=== PATIENT | female | born 2000 | race Caucasian/White ===

== ENCOUNTER 2021-10-27 15:37 | Emergency (ER) | payer MEDICAID ==
[2021-10-27 16:37] VITALS: O2SAT 100
[2021-10-27 16:39] VITALS: BP 125/76; PULSE 100
--- NOTE | 2021-10-27 17:58 | ERPHSYRPT ---
- History of Present Illness Time Seen by Provider: 10/27/21 17:53 Source: patient Exam Limitations: no limitations Patient Subjective Stated Complaint: Patient states " I woke up this am feeling like I was going to throw up and became dizzy." I also woke up with scratchy sore throat." Triage Nursing Assessment: Patient ambulated to room with steady gait and no difficulties. Patient denies any SOB. Respiratory regular and easy and non- labored. No use of accessory muscles or retractions noted. Patient stated she had tried her brothers vape last night and then woke up this am with a sore throat and nausea. Patient concerned she maybe having an allergic reaction to something in the vap. Patient denies having any emesis. Patient denies having any loose stools. Patient denies any fevers or chills at home. Patient denies any chest pain. + BS times 4 quads. ABD soft, round, non-distended. Upon visualization of throat, no swelling noted. Mild redness noted. Physician History: pt vaped a day or so ago and noted sore throat and aching. takes liquids OK. some nodes . abd nontender without mass. discussed testing and pt wishes to have Tx for strep and will f/u PMD after discussion of risk and benefit. she defers mono testing at this time. and will f/u PCP. no rash or swelling to indicate allergic rxn at this time. not short of breath. Timing/Duration: gradual onset, yesterday Associated Symptoms: sore throat, No difficulty swallowing, No voice change Hx Tetanus, Diphtheria Vaccination/Date Given: Yes Hx Influenza Vaccination/Date Given: No Hx Pneumococcal Vaccination/Date Given: No Immunizations Up to Date: Yes Travel Risk - International Travel Have you traveled outside of the country in past 3 weeks: No - Coronavirus Screening Are you exhibiting any of the following symptoms?: No Symptoms: Shortness of Breath - Vaccine Status Have you recieved a Covid-19 vaccination: No - Review of Systems Constitutional: No Fever, No Chills Eyes: No Symptoms Ears, Nose, & Throat: No Symptoms, Throat Pain, No Throat Swelling, No Hoarse, No Painful Swallowing, No Stridor Respiratory: No Cough, No Dyspnea Cardiac: No Chest Pain, No Edema, No Syncope Abdominal/Gastrointestinal: Nausea, No Abdominal Pain, No Vomiting, No Diarrhea Genitourinary Symptoms: No Dysuria Musculoskeletal: No Back Pain, No Neck Pain Skin: No Rash Neurological: No Dizziness, No Focal Weakness, No Sensory Changes Psychological: No Symptoms Endocrine: No Symptoms All Other Systems: Reviewed and Negative - Past Medical History Pertinent Past Medical History: Yes Neurological History: No Pertinent History ENT History: No Pertinent History Cardiac History: No Pertinent History Respiratory History: No Pertinent History Endocrine Medical History: No Pertinent History Musculoskeletal History: Other GI Medical History: No Pertinent History History: No Pertinent History Psycho-Social History: No Pertinent History Female Reproductive Disorders: No Pertinent History Other Medical History: ORTHO PROBLEMS NOTED IN PATIENT C/O. NO SURGERIES. - Past Surgical History Past Surgical History: No Neuro Surgical History: No Pertinent History Cardiac: No Pertinent History Respiratory: No Pertinent History Gastrointestinal: No Pertinent History Genitourinary: No Pertinent History Musculoskeletal: No Pertinent History Female Surgical History: No Pertinent History - Social History Smoking Status: Never smoker Exposure to second hand smoke: Yes Drug Use: marijuana Patient Lives Alone: No - Female History Hx Now: No - Nursing Vital Signs Nursing Vital Signs: Initial Vital Signs Temperature 98.0 F 10/27/21 15:37 Pulse Rate 106 H 10/27/21 15:37 Respiratory Rate 18 10/27/21 15:37 Blood Pressure 135/85 10/27/21 15:37 O2 Sat by Pulse Oximetry 100 10/27/21 15:37 Pain Scale Pain Intensity 0 - Physical Exam General Appearance: no apparent distress Eye Exam: bilateral eye: normal inspection, PERRL, EOMI Ear Exam: bilateral ear: auricle normal, canal normal, TM normal Throat Exam: No dental tenderness, No excessive drooling, No maxillary swelling, No pharynx swelling, No pharynx tenderness, No trismus Neck Exam: normal inspection, non-tender, supple, full range of motion, trachea midline Cardiovascular/Respiratory Exam: chest non-tender, regular rate/rhythm, heart sounds normal, no respiratory distress Abdominal Exam: non-tender, soft, no organomegaly Neurologic Exam: alert, oriented x 3, cooperative, 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 - Course Nursing assessment & vital signs reviewed: Yes - Progress Counseled pt/family regarding: diagnosis, need for follow-up - Departure Departure Disposition: Home Clinical Impression: Pharyngitis Condition: Good Critical Care Time: No Referrals: SOURAV ESPINO, [facility] [employer] [Primary Care Provider] - Follow up/PCP as directed Instructions: Sore Throat, Adult (DC) Additional Instructions: followup with your Dr. return meantime if not inproving, trouble swallowing, short of breath or other concerns. Prescriptions: Amoxicillin [AMOXIL 250 MG CAPSULE] 250 mg PO TID #30 cap
== END 2021-10-27 18:20 | disposition home or self-care (01) ==
LOC: ED 15:37
DX: J02.9 Acute pharyngitis, unspecified (principal)
CPT/HCPCS: 99283

== ENCOUNTER 2023-01-08 12:56 | Emergency (ER) | payer MEDICAID ==
[2023-01-08 13:17] VITALS: PULSE 105
[2023-01-08] MEDS ORDERED: Sodium Chloride 0.9% 1000 ML 1,000 ML IV STA (13:27)
[2023-01-08] MEDS ORDERED: TORAdol 30 mg Injection IV ONE (13:29)
[2023-01-08] MEDS ORDERED: TORAdol 30 mg Injection ONE (13:36)
[2023-01-08] MEDS ORDERED: Sodium Chloride 0.9% 1000 ML 1,000 ML ONE (13:36)
[2023-01-08 13:38] LABS: Absolute Neutrophil Ct (ANC) 6.42 x10^3/uL (1.4-6.9); BASOPHIL % 0.9 % (0.0-0.4); Basophil (Absolute #) 0.09 x10^3/uL (0-0.4); Eosinophil % 0.9 % (0.00-5.0); Eosinophil (Absolute #) 0.09 x10^3/uL (0-0.5); Hematocrit 43.7 % (35-47); Hemoglobin 14.5 g/dL (12.0-16.0); IMMATURE GRAN # 0.03 x10^3u/L (0.00-0.03); IMMATURE GRAN % 0.3 % (0.00-0.4); Lymphocyte (Absolute #) 2.06 x10^3/uL (1.0-4.6); Lymphocytes % 21.2 % (24.0-44.0); Mean Cell Volume 90.5 fL (78-100); Mean Corpuscular Hgb Concent. 33.2 g/dL (32-36); Mean Platelet Volume 9.8 fL (7.5-11.0); Monocyte (Absolute #) 1.01 x10^3/uL (0.0-1.3); Monocytes % 10.4 % (0.0-12.0); Neutrophil % 66.3 % (36.0-66.0); Platelet Count 269 x10^3/uL (150-450); Red Blood Count 4.83 x10^6/uL (4.1-5.4); Red Cell Distribution Width 12.5 % (11.5-14.0); White Blood Count 9.7 x10^3/uL (4.0-10.5)
[2023-01-08 13:41] LABS: HCG URINE TEST NEGATIVE (NEGATIVE)
[2023-01-08 13:45] LABS: Appearance Clear (Clear); Bacteria None Seen /HPF (None Seen); Bilirubin Negative (Negative); Blood Negative (Negative); Epithelial Cells None Seen /HPF (None Seen); Glucose, Urine Negative (Negative); Hyaline Casts NONE SEEN /LPF (0-2); Ketones Negative (Negative); Leukocyte Esterase Negative (Negative); Nitrite Negative (Negative); Protein,Urine Dip Negative (Negative); RBC 0-2 /HPF (0-5); Urobilinogen 0.2 mg/dL (0.2); WBC 0-2 /HPF (0-5)
[2023-01-08 13:47] LABS: ADD URINE CULTURE? NO (NO)
[2023-01-08 13:59] LABS: ALBUMIN 4.7 g/dL (3.5-5.0); ALKALINE PHOSPHATASE 61 U/L (38-126); ANION GAP 15.5 MEQ/L (5-15); BLOOD UREA NITROGEN 12 mg/dL (7-17); CHLORIDE 104 mmol/L (98-107); Calcium 9.5 mg/dL (8.4-10.2); Carbon Dioxide 25 mmol/L (22-30); Creatinine 1 0.63 mg/dL (0.52-1.04); EST GLOMERULAR FILTRATION RATE > 60.0 ML/MIN; Glucose 101 mg/dL (74-106); Potassium 3.5 mmol/L (3.5-5.1); SGOT/AST 32 U/L (14-36); SGPT/ALT 24 U/L (0-35); SODIUM 141 mmol/L (137-145); Total Protein 8.2 g/dL (6.3-8.2)
--- NOTE | 2023-01-08 14:36 | ERPHSYRPT ---
- History of Present Illness Time Seen by Provider: 01/08/23 14:33 Source: patient Exam Limitations: no limitations Patient Subjective Stated Complaint: Pt c/o of left lateral back pain for the past 3 days Triage Nursing Assessment: Pt was brought to the ER by her mother, hypertensive, rates pain as 8/10, pain with palpatation to the left lateral medial back, pulses normal, cap refil normal, no difficulty breathing, denies injury, doesn't appear to be in any distress Physician History: Patient is a 22-year-old female presents to our ED with complaints of left upper flank pain. Pain started approximately 3 days ago. Pain has been constant. No radiation. patient denies history of the same. No trauma. No fever. Patient admits to urinary frequency not urgency or dysuria. Patient denies a history of the same. Symptoms are moderate in intensity. No specific worsening improving factors. Patient voices no other complaints or concerns at this time. Portions of this note were created with voice recognition technology. There may be grammatical, spelling, punctuation or sound alike errors Timing/Duration: day(s) Severity: moderate Modifying Factors: Improves With: nothing Associated Symptoms: denies symptoms Allergies/Adverse Reactions: No Known Drug Allergies Allergy (Verified 01/08/23 13:17) Home Medications: No Reportable Medications [No Reported Medications] 01/08/23 [History] Hx Tetanus, Diphtheria Vaccination/Date Given: Yes Hx Influenza Vaccination/Date Given: No Hx Pneumococcal Vaccination/Date Given: No Travel Risk - International Travel Have you traveled outside of the country in past 3 weeks: No - Coronavirus Screening Are you exhibiting any of the following symptoms?: No Close contact with a COVID-19 positive Pt in past 14-21 Days: No - Vaccine Status Have you recieved a Covid-19 vaccination: Yes Table Hand: Unknown - Vaccination Dates Dates if Unknown: unk - Review of Systems Constitutional: No Symptoms, No Fever, No Chills Eyes: No Symptoms Ears, Nose, & Throat: No Symptoms Respiratory: No Symptoms, No Cough, No Dyspnea Cardiac: No Symptoms, No Chest Pain, No Edema, No Syncope Abdominal/Gastrointestinal: No Symptoms, No Abdominal Pain, No Nausea, No Vomiting, No Diarrhea Genitourinary Symptoms: No Symptoms, No Dysuria Musculoskeletal: No Symptoms, No Back Pain, No Neck Pain Skin: No Symptoms, No Rash Neurological: No Symptoms, No Dizziness, No Focal Weakness, No Sensory Changes Psychological: No Symptoms Endocrine: No Symptoms Hematologic/Lymphatic: No Symptoms Immunological/Allergic: No Symptoms All Other Systems: Reviewed and Negative - Past Medical History Pertinent Past Medical History: Yes Neurological History: No Pertinent History ENT History: No Pertinent History Cardiac History: No Pertinent History Respiratory History: No Pertinent History Endocrine Medical History: No Pertinent History Musculoskeletal History: Other GI Medical History: No Pertinent History History: No Pertinent History Psycho-Social History: No Pertinent History Female Reproductive Disorders: No Pertinent History Other Medical History: ORTHO PROBLEMS NOTED IN PATIENT C/O. NO SURGERIES. - Past Surgical History Past Surgical History: No Neuro Surgical History: No Pertinent History Cardiac: No Pertinent History Respiratory: No Pertinent History Gastrointestinal: No Pertinent History Genitourinary: No Pertinent History Musculoskeletal: No Pertinent History Female Surgical History: No Pertinent History - Social History Smoking Status: Never smoker Exposure to second hand smoke: Yes Drug Use: marijuana Patient Lives Alone: No - Female History Hx Now: No (implants in arm) - Nursing Vital Signs Nursing Vital Signs: Initial Vital Signs Temperature 98.5 F 01/08/23 13:01 Pulse Rate 105 H 01/08/23 13:01 Blood Pressure 172/83 01/08/23 13:01 O2 Sat by Pulse Oximetry 99 01/08/23 13:01 Pain Scale Pain Intensity [] 8 Pain Intensity 9 - Physical Exam General Appearance: no apparent distress, alert Eye Exam: PERRL/EOMI, eyes nml inspection Ears, Nose, Throat Exam: normal ENT inspection, pharynx normal, moist mucous membranes Neck Exam: normal inspection, non-tender, supple, full range of motion Respiratory Exam: normal breath sounds, lungs clear, airway intact, No respiratory distress Cardiovascular Exam: regular rate/rhythm, normal heart sounds, normal peripheral pulses Gastrointestinal/Abdomen Exam: soft, normal bowel sounds, No tenderness, No mass Back Exam: normal inspection, normal range of motion, other (Tenderness to palpation left upper posterior flank. Overlying soft tissue intact. No signs of trauma.), No CVA tenderness, No vertebral tenderness Extremity Exam: normal inspection, normal range of motion, pelvis stable Neurologic Exam: alert, oriented x 3, cooperative, normal mood/affect, nml cerebellar function, nml station & gait, sensation nml, No motor deficits Skin Exam: normal color, warm, dry, No rash Lymphatic Exam: No adenopathy SpO2 Interpretation: normal SpO2: 99 O2 Delivery: Room Air - Course Nursing assessment & vital signs reviewed: Yes - CT Exams Abdomen/Pelvis CT Interpretation: Tele-radiologist Report (Small right base calcific granuloma, right ovarian cyst during 2.6 cm. Fecal stasis) Ordered Tests: Active Orders 24 hr Category Date Time Status IV Insertion STAT Care 01/08/23 13:27 Active ABDOMEN AND PELVIS W/0 CONTRAS [CT] Stat Exams 01/08/23 14:16 Taken CBC W DIFF Stat Lab 01/08/23 13:35 Completed CMP Stat Lab 01/08/23 13:35 Completed D-DIMER QUANTITATIVE Stat Lab 01/08/23 13:35 Completed HCG QUALITATIVE, URINE Stat Lab 01/08/23 13:35 Completed UA W/RFX UR CULTURE Stat Lab 01/08/23 13:35 Completed Medication Summary Discontinued Medications Generic Name Dose Route Start Last Admin Trade Name Freq PRN Reason Stop Dose Admin Sodium Chloride 1,000 mls @ 999 mls/hr 01/08/23 13:27 01/08/23 14:39 Sodium Chloride 0.9% 1000 Ml IV 01/08/23 14:27 Infused .Q1H1M STA Infusion Sodium Chloride Confirm 01/08/23 13:36 Sodium Chloride 0.9% 1000 Ml Administered 01/08/23 13:37 Dose 1,000 mls @ ud .ROUTE .STK-MED ONE Ketorolac Tromethamine 30 mg 01/08/23 13:29 01/08/23 13:38 Ketorolac Tromethamine 30 Mg/Ml Inj IV 01/08/23 13:30 30 mg STAT ONE Administration Ketorolac Tromethamine Confirm 01/08/23 13:36 Ketorolac Tromethamine 30 Mg/Ml Inj Administered 01/08/23 13:37 Dose 30 mg .ROUTE .STK-MED ONE Lab/Rad Data: Laboratory Result Diagrams 01/08/23 13:35 01/08/23 13:35 Laboratory Results 01/08/23 01/08/23 01/08/23 Range/Units 13:35 13:35 13:35 WBC (4.0-10.5) x10^3/uL RBC (4.1-5.4) x10^6/uL Hgb (12.0-16.0) g/dL Hct (35-47) % MCV (78-100) fL MCH (26-32) pg MCHC (32-36) g/dL RDW (11.5-14.0) % Plt Count (150-450) x10^3/uL MPV (7.5-11.0) fL Gran % (36.0-66.0) % Immature Gran % (Auto) (0.00-0.4) % Nucleat RBC Rel Count (0.00-0.1) % Eos # (Auto) (0-0.5) x10^3/uL Immature Gran # (Auto) (0.00-0.03) x10^3u/L Absolute Lymphs (auto) (1.0-4.6) x10^3/uL Absolute Monos (auto) (0.0-1.3) x10^3/uL Absolute Nucleated RBC (0.00-0.01) x10^3u/L Lymphocytes % (24.0-44.0) % Monocytes % (0.0-12.0) % Eosinophils % (0.00-5.0) % Basophils % (0.0-0.4) % Absolute Granulocytes (1.4-6.9) x10^3/uL Basophils # (0-0.4) x10^3/uL D-Dimer < 0.19 (0.0-0.50) mg/L Sodium 141 (137-145) mmol/L Potassium 3.5 (3.5-5.1) mmol/L Chloride 104 (98-107) mmol/L Carbon Dioxide 25 (22-30) mmol/L Anion Gap 15.5 H (5-15) MEQ/L BUN 12 (7-17) mg/dL Creatinine 0.63 (0.52-1.04) mg/dL Estimated GFR > 60.0 ML/MIN Glucose 101 (74-106) mg/dL Calcium 9.5 (8.4-10.2) mg/dL Total Bilirubin 1.00 (0.2-1.3) mg/dL AST 32 (14-36) U/L ALT 24 (0-35) U/L Alkaline Phosphatase 61 (38-126) U/L Serum Total Protein 8.2 (6.3-8.2) g/dL Albumin 4.7 (3.5-5.0) g/dL Urine Color (Yellow) Urine Appearance (Clear) Urine pH (4.6-8.0) Ur Specific [place] (1.005-1.030) Urine Protein (Negative) Urine Glucose (UA) (Negative) mg/dL Urine Ketones (Negative) Urine Blood (Negative) Urine Nitrite (Negative) Urine Bilirubin (Negative) Urine Urobilinogen (0.2) mg/dL Ur Leukocyte Esterase (Negative) U Hyaline Cast (Auto) (0-2) /LPF Urine Microscopic RBC (0-5) /HPF Urine Microscopic WBC (0-5) /HPF Ur Epithelial Cells (None Seen) /HPF Urine Bacteria (None Seen) /HPF Urine Culture Reflexed (NO) Urine HCG, Qual NEGATIVE (NEGATIVE) 01/08/23 01/08/23 Range/Units 13:35 13:35 WBC 9.7 (4.0-10.5) x10^3/uL RBC 4.83 (4.1-5.4) x10^6/uL Hgb 14.5 (12.0-16.0) g/dL Hct 43.7 (35-47) % MCV 90.5 (78-100) fL MCH 30.0 (26-32) pg MCHC 33.2 (32-36) g/dL RDW 12.5 (11.5-14.0) % Plt Count 269 (150-450) x10^3/uL MPV 9.8 (7.5-11.0) fL Gran % 66.3 H (36.0-66.0) % Immature Gran % (Auto) 0.3 (0.00-0.4) % Nucleat RBC Rel Count 0.0 (0.00-0.1) % Eos # (Auto) 0.09 (0-0.5) x10^3/uL Immature Gran # (Auto) 0.03 (0.00-0.03) x10^3u/L Absolute Lymphs (auto) 2.06 (1.0-4.6) x10^3/uL Absolute Monos (auto) 1.01 (0.0-1.3) x10^3/uL Absolute Nucleated RBC 0.00 (0.00-0.01) x10^3u/L Lymphocytes % 21.2 L (24.0-44.0) % Monocytes % 10.4 (0.0-12.0) % Eosinophils % 0.9 (0.00-5.0) % Basophils % 0.9 (0.0-0.4) % Absolute Granulocytes 6.42 (1.4-6.9) x10^3/uL Basophils # 0.09 (0-0.4) x10^3/uL D-Dimer (0.0-0.50) mg/L Sodium (137-145) mmol/L Potassium (3.5-5.1) mmol/L Chloride (98-107) mmol/L Carbon Dioxide (22-30) mmol/L Anion Gap (5-15) MEQ/L BUN (7-17) mg/dL Creatinine (0.52-1.04) mg/dL Estimated GFR ML/MIN Glucose (74-106) mg/dL Calcium (8.4-10.2) mg/dL Total Bilirubin (0.2-1.3) mg/dL AST (14-36) U/L ALT (0-35) U/L Alkaline Phosphatase (38-126) U/L Serum Total Protein (6.3-8.2) g/dL Albumin (3.5-5.0) g/dL Urine Color Yellow (Yellow) Urine Appearance Clear (Clear) Urine pH 7.0 (4.6-8.0) Ur Specific [place] 1.010 (1.005-1.030) Urine Protein Negative (Negative) Urine Glucose (UA) Negative (Negative) mg/dL Urine Ketones Negative (Negative) Urine Blood Negative (Negative) Urine Nitrite Negative (Negative) Urine Bilirubin Negative (Negative) Urine Urobilinogen 0.2 (0.2) mg/dL Ur Leukocyte Esterase Negative (Negative) U Hyaline Cast (Auto) NONE SEEN (0-2) /LPF Urine Microscopic RBC 0-2 (0-5) /HPF Urine Microscopic WBC 0-2 (0-5) /HPF Ur Epithelial Cells None Seen (None Seen) /HPF Urine Bacteria None Seen (None Seen) /HPF Urine Culture Reflexed NO (NO) Urine HCG, Qual (NEGATIVE) - Progress Progress: improved Progress Note: Patient is a 22-year-old female presents to our ED for evaluation of left posterior superior flank pain. Patient experienced worsening pain with deep inspiration. D-dimer negative. CBC CMP negative. No leukocytosis. Urinalysis negative for UTI. No pyelonephritis. CT abdomen pelvis negative for kidney stone. Patient received normal saline and Toradol. Pain significantly improved. Patient is ready for discharge. No indication for further work-up at this time. Patient states she has been sleeping on a couch. It is possible that patient may have strained her back while sleeping however we are not sure of the cause of patient's symptoms. Patient advised to rest. Patient should avoid anything that reproduces her causes pain. She voices no other complaints or concerns at this time. Portions of this note were created with voice recognition technology. There may be grammatical, spelling, punctuation or sound alike errors Complexity of problem addressed is moderate acute. New diagnosis with uncertain prognosis. Complexity of data reviewed and analyzed is moderate. Test ordered test reviewed and analyzed by Dr. Dockery including urinalysis which is negative for urinary tract infection. CT abdomen pelvis shows no kidney stone. Incidental ovarian cyst. Risk of complication and or risk morbidity/mortality of patient management is moderate. Patient received a CT abdomen pelvis along with intravenous fluids and intravenous pain medication. We will discharge home. Patient agrees to follow-up with her primary care doctor within 48 hours for reevaluation. No social determinants of health present to impede follow-up. Patient agrees to follow-up with her primary care doctor within 48 hours for reevaluation. [id number] analgesics as necessary. Significant other at bedside. They voiced no other complaints or concerns at this time. Portions of this note were created with voice recognition technology. There may be grammatical, spelling, punctuation or sound alike errors 01/08/23 15:15 Counseled pt/family regarding: lab results, diagnosis, need for follow-up, rad results - Departure Departure Disposition: Home Clinical Impression: Back strain Condition: Stable Critical Care Time: No Referrals: DANIEL BRADSHAW NP [Primary Care Provider] - Follow up/PCP as directed Additional Instructions: Discharge/Care Plan JEAN-PAULGLENNA RADHA was seen on 01/08/23 in the Emergency Room. The patient was counseled regarding Diagnosis,Lab results, Imaging studies, need for follow up and when to return to the Emergency Room. Prescriptions given: Discharge Note I have spoken with the patient and/or caregivers. I have explained the patient's condition, diagnosis and treatment plan based on the information available to me at this time. I have answered the patient's and/or caregiver's questions and addressed any concerns. The patient and/or caregivers have as good understanding of the patient's diagnosis, condition and treatment plan as can be expected at this point. The vital signs have been stable. The patient's condition is stable and appropriate for discharge from the emergency department. The patient will pursue further outpatient evaluation with the primary care physician or other designated or consulting physician as outlined in the discharge instructions. The patient and/or caregivers are agreeable to this plan of care and follow-up instructions have been explained in detail. The patient and/or caregivers have received these instruction. The patient/and or caregivers are aware that any significant change in condition or worsening of symptoms should prompt an immediate return to this or the closest emergency department or call 911.
[2023-01-08 15:10] VITALS: BP 118/74; O2SAT 99
--- NOTE | 2023-01-08 17:32 | XRAY ---
Indication: Left flank pain. Multiple contiguous images obtained through the abdomen and pelvis without contrast using renal stone protocol. Comparison: None Lung bases clear with incidental small right is calcific granuloma. Heart not enlarged. No renal calculus or evidence for obstructive uropathy in either system. Noncontrasted stomach and bowel loops appear nonobstructed with normal appendix. Mild diffuse scattered colonic fecal debris. Tiny splenic calcified granulomas. Right ovary demonstrates 2.6 cm cyst. No free fluid/air. Remaining liver, gallbladder, pancreas, spleen, adrenal glands, kidneys, ureters, bladder, uterus, and aorta are unremarkable for noncontrast exam. Osseous structures intact. No ventral or inguinal hernias. Impression: 1. Negative for renal calculus or evidence for obstructive uropathy. 2. Incidental mild diffuse fecal stasis, 2.6 cm dominant right ovary cyst, and old granulomatous disease.
== END 2023-01-08 15:26 | disposition home or self-care (01) ==
LOC: ED 12:56
DX: N83.201 Unspecified ovarian cyst, right side (principal); S39.012A Strain of muscle, fascia and tendon of lower back, initial encounter; R10.9 Unspecified abdominal pain
CPT/HCPCS: 36000; 36415; 74176; 80053; 81001; 81025; 85025; 85379; 96374; 99284; J1885